=== PATIENT | male | born 1965 | race Caucasian/White ===

== ENCOUNTER 2022-01-12 10:39 | Emergency (ER) | payer OTHER ==
[2022-01-12 11:53] LABS: HEMOGLOBIN 13.8 gm/dl (14.0-17.5); RED BLOOD COUNT 4.64 M/UL (4.20-5.50); WHITE BLOOD COUNT 13.8 K/UL (4.5-11.0)
[2022-01-12 12:44] LABS: BUN/CREATININE RATIO 18 (0-10)
[2022-01-12] MEDS ORDERED: OMNICEF 300 MG300 MG PO (12:53)
== END 2022-01-12 13:25 | disposition home or self-care (01) ==
LOC: ER1 10:39
PROVIDERS: Physician Assistant
DX: R82.81 Pyuria (principal); R74.01 Elevation of levels of liver transaminase levels
CPT/HCPCS: 80053; 81001; 82550; 82553; 84484; 85025; 87086; 96374; 99283; J0696